=== PATIENT | female | born 1985 | race Caucasian/White ===

== ENCOUNTER 2017-07-04 10:32 | Outpatient (CLI) | payer SELFPAY ==
--- NOTE | 2017-07-04 12:59 | XRAY Report ---
THREE-VIEW RIGHT FOOT: 07/04/2017 CLINICAL INDICATION: Pain. FINDINGS: AP, lateral, oblique views of the right foot demonstrate no evidence of fracture or disloc ation. No radiopaque foreign body is seen in the soft tissues. IMPRESSION: NORMAL RIGHT FOOT. JOB #: [id number] EXT JOB #:[id number]
== END 2017-07-04 10:33 | disposition home or self-care (01) ==
LOC: DI 10:32
PROVIDERS: ATTEND Nurse Practitioner Gerontology
DX: M79.671 Pain in right foot (principal)

== ENCOUNTER 2018-01-14 12:32 | Outpatient (CLI) | payer MEDICAID | END 2018-01-14 12:33 | disposition critical access hospital (66) | LOC: EMS 12:32 | PROVIDERS: ATTEND Surgery | DX: M25.561 Pain in right knee (principal); W01.0XXA Fall on same level from slipping, tripping and stumbling without subsequent striking against object, initial encounter; Y92.830 Public park as the place of occurrence of the external cause | CPT/HCPCS: A0425; A0427 ==

== ENCOUNTER 2018-01-14 12:45 | Emergency (ER) | payer MEDICAID ==
[2018-01-14] MEDS ORDERED: HYDROmorphone 1 MG/ML CARPUJECT IVP STA (13:48)
[2018-01-14] MEDS ORDERED: KETOROLAC 60 MG/2 ML VIAL IVP STA (13:53)
--- NOTE | 2018-01-14 14:34 | XRAY Preliminary Report ---
Exam: XR KNEE 4 VIEW RT IMPRESSION: Normal knee radiography. [facility] SITE ID: [id number]
[2018-01-14 14:35] VITALS: BP 134/77
--- NOTE | 2018-01-14 14:35 | XRAY Report ---
EXAM: RIGHT KNEE RADIOGRAPHY EXAM DATE: 01/14/2018 02:14 PM. CLINICAL HISTORY: Fall, R knee pain. COMPARISON: None. TECHNIQUE: 4 views. FINDINGS: Bones: Normal. No fractures or bone lesions. Joints: Normal. No effusion. No subluxations. Soft Tissues: Normal. No soft tissue swelling. IMPRESSION: Normal knee radiography. [facility] Referring Provider Line: [phone] SITE ID: [id number]
[2018-01-14] MEDS ORDERED: oxyCOD/ACETAMIN 5 MG/325 MG TABLET PO STA (14:37)
--- NOTE | 2018-01-14 14:43 | ED Physician Documentation ---
History of Present Illness - Stated complaint Stated Complaint: GLF - Chief complaint Chief Complaint: General - History obtained from History obtained from: Patient, Family, EMS - History of Present Illness Timing: How many hours ago (1) Pain level max: 10 Pain level now: 9 - Additonal information Additional information: Patient is a 32-year-old female who was out walking in the [place] today, tripped over a tree root and felt a ripping tearing sensation on the lateral aspect of the right knee. EMS arrived and was given 100 mcg of fentanyl. Pain improved. She was also placed in a splint. No deformity noted. Neurovascularly intact at that time. Pain is better with fentanyl and rest. Worse with movement. 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: Yes Substance Use and Type: Marijuana - Immunizations Immunizations are current?: Yes - POLST Patient has POLST: No PD ED PE NORMAL - Vitals Vital signs reviewed: Yes - General General: Alert and oriented X 3, No acute distress - HEENT HEENT: Moist mucous membranes - Neck Neck: Supple, no meningeal sign - Cardiac Cardiac: RRR, Strong equal pulses - Respiratory Respiratory: No respiratory distress, Clear bilaterally - Abdomen Abdomen: Soft, Non tender, Non distended - Derm Derm: Warm and dry - Extremities Extremities: Other (Mild swelling about the right knee. Difficult ligamentous exam secondary to pain. No gross deformity. Neurovascularly intact.) - Neuro Neuro: Alert and oriented X 3 - Psych Psych: Normal mood, Normal affect Results - Vitals Vitals: Vital Signs - 24 hr 01/14/18 01/14/18 12:49 14:34 Temperature 36.2 C L 36.7 C Heart Rate 62 80 Respiratory 18 17 Rate Blood Pressure 135/71 H 134/77 H O2 Saturation 100 98 Oxygen O2 Source Room air - Rads (name of study) Right knee x-ray Radiology: Prelim report reviewed, EMP read contemporaneously, See rad report ( Normal) PD MEDICAL DECISION MAKING - ED course Complexity details: reviewed results, re-evaluated patient, considered differential, d/w patient, d/w family ED course: Patient is a 32-year-old female presents to the emergency department with right knee pain. This occurred after a traumatic event. Likely knee sprain, but may have ligamentous tears around her knee, difficult exam secondary to pain. No acute findings on x-ray. Placed in an articulating knee brace and will have her follow-up with her doctor for repeat evaluation once the swelling has decreased. Departure - Departure Disposition: 01 Home, Self Care Clinical Impression: Right knee sprain Qualifiers: Encounter type: initial encounter Involved ligament of knee: unspecified ligament Qualified Code(s): S83.91XA - Sprain of unspecified site of right knee , initial encounter Condition: Good Instructions: ED Sprain Knee Follow-Up: [facility] [Provider Group] your,doctor in 1 week [Other] Prescriptions: Oxycodone HCl/Acetaminophen [Percocet 5-325 mg Tablet] 1 - 2 each PO Q6H PRN # 20 tablet PRN Reason: pain Comments: You may bear weight as tolerated. Wear the brace to help support the knee. It is important that you follow-up with your doctor in approximately 1 week for repeat evaluation of the knee as we cannot fully test your ligaments secondary to your pain today. It is possible that this is a sprain or something more serious such as ligamentous tears. I have also given you the number for orthopedics if you are unable to see your doctor. Do not drink alcohol or drive while on narcotic pain medicine. Note that many narcotic pain relievers also contain tylenol/acetaminophen. Please ensure that your total dose of acetaminophen from all sources does not exceed 3 grams (3000mg) per day. You may constipated on this medication, take a stool softener such as "Colace" twice a day while you are on it. Also recommend a iojc-giq-lbxquxa laxative such as senna or MiraLAX any day that you do not have a bowel movement. If you received narcotic pain medication in the emergency department, do not drive or operate machinery for the next 24 hours.
== END 2018-01-14 15:33 | disposition home or self-care (01) ==
LOC: EDUNIT# → ED 12:45
DX: S83.91XA Sprain of unspecified site of right knee, initial encounter (principal); W01.0XXA Fall on same level from slipping, tripping and stumbling without subsequent striking against object, initial encounter; Y93.01 Activity, walking, marching and hiking; Y92.821 Forest as the place of occurrence of the external cause; I10 Essential (primary) hypertension
CPT/HCPCS: 73564; 96374; 96375; 99283; 99284; J1170

== ENCOUNTER 2018-01-23 16:04 | Emergency (ER) | payer MEDICAID ==
--- NOTE | 2018-01-23 16:53 | ED Physician Documentation ---
PD HPI LOWER EXT INJURY - Stated complaint Stated Complaint: RT FT PX/SWELLING - Chief complaint Chief Complaint: Ext Problem - History obtained from History obtained from: Patient - History of Present Illness PD HPI LOW EXT INJURY LOCATION: Right, Knee, Lower leg Type of injury: Fall, Twist (10 days ago) Worsened by: Moving, Palpating (calf area) Associated symptoms: Swelling. No: Weakness, Numbness Contributing factors: No: Anticoagulated, Prior ortho surgery Similar symptoms before: Has not had sx before Recently seen: Clinic (couple days ago with Ortho and concern for ACL injury and to get MRI.), Emergency Dept (Seen in the emergency department 10 days ago with diagnosis of a knee sprain he was given a knee immobilizer and crutches. She followed up with orthopedics. Days ago and there is concern for ACL injury and she is to get an MRI. She is noticed since then she has developed increased swelling and pain in the lower leg not just the knee. 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 - Present Medications Home Medications: Ambulatory Orders Medication Instructions Recorded Confirmed Ibuprofen 400 mg PO DAILY 12/26/15 12/26/15 Fluticasone [Flonase] 1 sprays ABRAM DAILY 01/14/18 01/14/18 Hydrocodone/Acetaminophen 1 - 2 each PO Q6H PRN #14 tablet 01/14/18 [Hydrocodon-Acetaminophen 5-325] HYDROcod/ACETAM 5/325 [Lutz 5/325] 1 tab PO Q6H PRN #20 tablet 01/23/18 Rivaroxaban [Xarelto] 15 mg PO BID #42 tablet 01/23/18 - Allergies Allergies/Adverse Reactions: Allergies Allergy/AdvReac Type Severity Reaction Status Date / Time No Known Drug Allergies Allergy Verified 01/23/18 16:11 - Social History Does the pt smoke?: No Smoking Status: Never smoker Does the pt drink ETOH?: Yes Does the pt have substance abuse?: Yes - Family History Family history: reports: Non contributory. denies: Venous thromboembolism - Immunizations Immunizations are current?: Yes - POLST Patient has POLST: No PD ED PE NORMAL - Vitals Vital signs reviewed: Yes - General General: Alert and oriented X 3, No acute distress, Well developed/nourished - Neck Neck: Supple, no meningeal sign, No adenopathy - Cardiac Cardiac: RRR, No murmur - Respiratory Respiratory: No respiratory distress, Clear bilaterally - Derm Derm: Normal color, Warm and dry - Extremities Extremities: Other (right leg with mild effusion at knee. Bruising noted behind knee and at upper calf. Tenderness with swelling in the posterior lower leg most of the length of the calf, and some edema in ankle. No bruising down lower. Has DP pulse, cap refill and color in foot. ) - Neuro Neuro: Alert and oriented X 3, No motor deficit, No sensory deficit, Normal speech Results - Vitals Vitals: Vital Signs - 24 hr 01/23/18 01/23/18 16:06 18:53 Temperature 37 C Heart Rate 107 H 71 Respiratory 16 16 Rate Blood Pressure 167/93 H 146/95 H O2 Saturation 98 98 Oxygen O2 Source Room air - Rads (name of study) duplex U/S right leg Radiology: Prelim report reviewed, Discussed with rads (Nonocclusive clot in popliteal and DVT in lower veins. ) PD MEDICAL DECISION MAKING - ED course Complexity details: reviewed results (below knee DVTs, but will still be in knee immobilizer and has knee injury so risk factors still present and likely would have propagation of the clot to above knee, so I think it is prudent to treat it. ), considered differential, d/w patient Departure - Departure Disposition: 01 Home, Self Care Clinical Impression: Acute deep vein thrombosis (DVT) of right lower extremity Qualifiers: Affected thrombotic vein of extremity: unspecified lower extremity distal vein Qualified Code(s): I82.4Z1 - Acute embolism and thrombosis of unspecified deep veins of right distal lower extremity Condition: Stable Record reviewed to determine appropriate education?: Yes Instructions: ED DVT Prescriptions: HYDROcod/ACETAM 5/325 [Lutz 5/325] 1 tab PO Q6H PRN #20 tablet PRN Reason: Pain Rivaroxaban [Xarelto] 15 mg PO BID #42 tablet Comments: Continue with the knee brace and crutches with partial or no weightbearing as needed for comfort of the pain. Start Xarelto 15 mg twice daily for 3 weeks for the blood clot. After that the dose gets changed to 20 mg daily and he will need to follow-up with your primary care or orthopedics in the next week or so to follow this along. Tylenol if needed for pains. Add hydrocodone if needed for worse pain. Follow-up with orthopedics regarding the knee injury as planned. Discharge Date/Time: 01/23/18 18:52
[2018-01-23] MEDS ORDERED: HYDROcod/ACETAM 5/325 MG TABLET PO STA (17:09)
[2018-01-23] MEDS ORDERED: RIVAROXABAN 15 MG TABLET PO STA (18:31)
--- NOTE | 2018-01-23 19:16 | Ultrasound Report ---
EXAM: RIGHT LOWER EXTREMITY VENOUS ULTRASOUND EXAM DATE: 01/23/2018 06:29 PM. CLINICAL HISTORY: Recent knee injury. Right calf pain since yesterday. COMPARISON: None. TECHNIQUE: Real-time sonographic vascular imaging was performed by the ip litigation associate through the lower extremity utilizing both color-flow and Doppler spectral analysis. Multiple risk control field representative static bimal ges were saved for review. FINDINGS: Common Femoral Vein (CFV): Normal. CFV-GSV Junction: Normal. Profunda Femoral Vein (PFV): Normal. Femoral Vein (FV) Prox: Normal. Femoral Vein (FV) Mid: Normal. Femoral Vein (FV) Dist: Normal. Popliteal Vein: Nonocclusive thrombus. Posterior Tibial Veins: Proximal to mid thrombus. Peroneal Veins: Thrombus. Other: None. IMPRESSION: Nonocclusive DVT in the popliteal vein, with peroneal vein and posterior tibial vein DVT. [facility] The critical result notification system was initiated by Dr. Syed Banda at 19:10 hrs on 01/23/18. The above findings were discussed with Nabeel Sharp by Dr. Syed Banda at 19:14 hrs on 01/23/18. Referring Provider Line: [phone] SITE ID: [id number]
[2018-01-23 19:36] VITALS: BP 146/95
== END 2018-01-23 18:52 | disposition home or self-care (01) ==
LOC: ED 16:04
DX: I10 Essential (primary) hypertension (principal); I82.431 Acute embolism and thrombosis of right popliteal vein; I82.441 Acute embolism and thrombosis of right tibial vein
CPT/HCPCS: 93971; 99283; A9270

== ENCOUNTER 2018-01-27 07:54 | Outpatient (CLI) | payer MEDICAID ==
--- NOTE | 2018-01-28 21:45 | MRI Report ---
EXAM: RIGHT KNEE MRI WITHOUT CONTRAST EXAM DATE: 01/27/2018 08:46 AM. CLINICAL HISTORY: Sprain of anterior cruciate ligament of right knee. Right knee injury while hiking 2 weeks ago. COMPARISON: Right knee radiography from 01/14/2018. TECHNIQUE: Multiplanar, multisequence T1-weighted and fluid-sensitive sequences of the knee without c ontrast. Other: None. FINDINGS: Bones and articular cartilage: Bone contusion, nondisplaced fracture, and focal articular cartilage d elamination injury at the medial aspect of the medial trochlear facet and anteromedial aspect of the medial femoral condyle. Small bone contusion at the anterior lateral aspect of the medial tibial plat eau. Medial Meniscus: The medial meniscus is intact. Lateral Meniscus: The lateral meniscus is intact. Cruciate Ligaments: Tear at the mid to distal aspect of the anterior cruciate ligament which is most likely full-thickness in degree. There is also a high-grade partial tear or full-thickness tear at th e mid aspect of the posterior cruciate ligament. Collateral Ligaments: The medial collateral and lateral collateral ligamentous structures are intact. Tendons: The quadriceps, patellar, semimembranosus, and popliteus tendons are unremarkable. Musculature: Mild edema within the proximal aspect of the soleus muscle and proximal aspect of the ti bialis anterior muscle. Trace amount of edema between the popliteus, soleus, and gastrocnemius muscle s. Other: Small joint effusion. No popliteal cyst. No loose bodies. The medial and lateral retinacula a re intact. Subcutaneous edema at the posterior aspect of the knee. IMPRESSION: 1. Tear at the mid to distal aspect of the anterior cruciate ligament which is most likely full-thick ness in degree. High-grade partial tear or full-thickness tear at the mid aspect of the posterior cru ciate ligament. 2. Bone contusion, nondisplaced fracture, and focal articular cartilage delamination injury at the me dial aspect of the medial trochlear facet and anteromedial aspect of the medial femoral condyle. Smal l bone contusion at the anterolateral aspect of the medial tibial plateau. 3. No meniscal tear. 4. Small joint effusion. [facility] MUSCULOSKELETAL RADIOLOGY SECTION Referring Provider Line: [phone] SITE ID: [id number]
== END 2018-01-27 07:55 | disposition home or self-care (01) ==
LOC: DI 07:54
PROVIDERS: ATTEND Orthopaedic Surgery
DX: S83.511A Sprain of anterior cruciate ligament of right knee, initial encounter (principal); S83.521A Sprain of posterior cruciate ligament of right knee, initial encounter; S80.11XA Contusion of right lower leg, initial encounter

== ENCOUNTER 2018-08-04 15:59 | Outpatient (CLI) | payer MEDICAID ==
--- NOTE | 2018-08-04 17:09 | Ultrasound Report ---
Reason: ACUTE DEEP VENOUS THROMBOSIS OF LEG, RIGHT Procedure Date: 08/04/2018 Accession Number: [id number] / [id number] Procedure: US - Duplex Ext Veins Right CPT Code: FULL RESULT: EXAM: RIGHT LOWER EXTREMITY VENOUS ULTRASOUND EXAM DATE: 08/04/2018 04:41 PM. CLINICAL HISTORY: Follow-up right lower extremity deep venous thrombosis. Patient on Xarelto COMPARISON: DUPLEX EXT VEINS RIGHT 01/23/2018 5:41 PM. TECHNIQUE: Real-time sonographic vascular imaging was performed by the channel executive through the lower extremity utilizing both color-flow and Doppler spectral analysis. Multiple sales utility representative static images were saved for review. FINDINGS: Common Femoral Vein (CFV): Normal. CFV-GSV Junction: Normal. Profunda Femoral Vein (PFV): Normal. Femoral Vein (FV) Prox: Normal. Femoral Vein (FV) Mid: Normal. Femoral Vein (FV) Dist: Normal. Popliteal Vein: Normal. Posterior Tibial Veins: Normal. Peroneal Veins: Normal. Other: Thrombus previously demonstrated in the popliteal vein and calf has resolved. IMPRESSION: No evidence for deep venous thrombosis. [facility]
== END 2018-08-04 16:00 | disposition home or self-care (01) ==
LOC: DI 15:59
PROVIDERS: ATTEND Nurse Practitioner Gerontology
DX: I82.401 Acute embolism and thrombosis of unspecified deep veins of right lower extremity (principal); Z79.01 Long term (current) use of anticoagulants

== ENCOUNTER 2018-08-30 18:54 | Emergency (ER) | payer MEDICAID ==
[2018-08-30 19:09] VITALS: BP 170/97
[2018-08-30] MEDS ORDERED: AMOX/CLAV 875 MG/125 MG TABLET PO STA (19:33)
--- NOTE | 2018-08-30 19:35 | ED Physician Documentation ---
History of Present Illness - Stated complaint Stated Complaint: DOG BITE FINGER - Chief complaint Chief Complaint: General - History obtained from History obtained from: Patient - History of Present Illness Timing: How many hours ago (11) Pain level max: 2 Pain level now: 1 - Additonal information Additional information: r index finger dog bite this am at work. States swelling and redness tonight. Td UTD. She is right handed. Nothing makes it better. worse with movement. 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 - Present Medications Home Medications: Ambulatory Orders Medication Instructions Recorded Confirmed Amox/Clav 875/125 [Augmentin] 1 tab PO Q12H #14 tablet 08/30/18 Cetirizine [ZyrTEC] 1 08/30/18 Lisinopril 1 08/30/18 Norethindrone AC-Eth Estradiol 1 08/30/18 [Femhrt 0.5 mg-2.5 Mcg Tablet] - Allergies Allergies/Adverse Reactions: Allergies Allergy/AdvReac Type Severity Reaction Status Date / Time No Known Drug Allergies Allergy Verified 08/30/18 19:05 - Social History Does the pt smoke?: No Smoking Status: Never smoker Does the pt drink ETOH?: Yes Does the pt have substance abuse?: Yes - Immunizations Immunizations are current?: Yes - POLST Patient has POLST: No PD ED PE NORMAL - Vitals Vital signs reviewed: Yes (O2 sat is 97% on RA.) - General General: Alert and oriented X 3, No acute distress - Derm Derm: Warm and dry - Extremities Extremities: Other (R index finger, superficial bites. mild erythema and swelling NVI.) - Neuro Neuro: Alert and oriented X 3 - Psych Psych: Normal mood, Normal affect Results - Vitals Vitals: Vital Signs - 24 hr 08/30/18 19:03 Temperature 36.8 C Heart Rate 115 H Respiratory 20 Rate Blood Pressure 170/97 H O2 Saturation 9 L Oxygen O2 Source Room air PD MEDICAL DECISION MAKING - ED course Complexity details: considered differential, d/w patient ED course: Right index finger dog bite. Will place on Augmentin and follow-up closely with her doctor. She is right-handed. Tetanus is up-to-date. Warnings of infection and instructions on wound care given at bedside. Also counseled on how to minimize scarring. Patient counseled regarding signs and symptoms for which I believe and urgent re-evaluation would be necessary. Patient with good understanding of and agreement to plan and is comfortable going home at this time This document was made in part using voice recognition software. While efforts are made to proofread this document, sound alike and grammatical errors may occur. Departure - Departure Disposition: 01 Home, Self Care Clinical Impression: Dog bite Qualifiers: Encounter type: initial encounter Qualified Code(s): W54.0XXA - Bitten by dog, initial encounter Condition: Good Instructions: ED Bite Animal General Follow-Up: Gloria Craft ARNP [Primary Care Provider] - Within 1 week Prescriptions: Amox/Clav 875/125 [Augmentin] 1 tab PO Q12H #14 tablet Comments: Take all antibiotics until gone. Return if you worsen. Follow-up with your doctor for further care. Discharge Date/Time: 08/30/18 19:53
== END 2018-08-30 19:53 | disposition home or self-care (01) ==
LOC: ED 18:54
DX: S61.250A Open bite of right index finger without damage to nail, initial encounter (principal); W54.0XXA Bitten by dog, initial encounter; Y93.89 Activity, other specified; Y92.89 Other specified places as the place of occurrence of the external cause; Y99.0 Civilian activity done for income or pay
CPT/HCPCS: 99283; A9270

== ENCOUNTER 2018-09-05 06:03 | Day surgery (SDC) | payer MEDICAID ==
[2018-09-05] MEDS ORDERED: ceFAZolin 2 GM/50 ML 2 GM/50 ML BAG IV ONE (06:29)
[2018-09-05] MEDS ORDERED: LACTATED RINGERS 1,000 ML IV ONE (06:34)
[2018-09-05 06:53] LABS: HCG UR QUAL NEGATIVE
--- NOTE | 2018-09-05 06:59 | ANESTHESIA ---
Pre-Anesthesia VS, & Labs - Is Patient ?: No - Lab Results Lab results reviewed: Yes <Mihai Bullock - Last Filed: 09/05/18 06:56> - NPO >8 hours Last Fluid Intake: Water at 0400 - Is Patient ?: No <Kaiden Whitfield - Last Filed: 09/05/18 07:35> - Diagnosis R ACL Sprain (Mihai Bullock) R ACL Sprain (Kaiden Whitfield) - Procedure R arthroscopic ACL repair with hamstring allograft (Mihai Bullock) R arthroscopic ACL repair with hamstring allograft (Kaiden Whitfield) Vital Signs: Temp Pulse Resp BP Pulse Ox 36.4 C L 85 16 122/96 H 98 09/05/18 06:38 09/05/18 06:38 09/05/18 06:38 09/05/18 06:38 09/05/18 06:38 Height 5 ft 7 in Weight (kg) 92.4 kg Body Mass Index 32.3 Home Medications and Allergies <Mihai Bullock - Last Filed: 09/05/18 06:56> <Kaiden Whitfield - Last Filed: 09/05/18 07:35> Home Medications: Ambulatory Orders Amoxicillin/Potassium Clav [Amox Tr-K Clv 875-125 mg Tab] 1 each PO BID 09/04/18 Cetirizine [ZyrTEC] 1 mg PO DAILY 08/30/18 Lisinopril 1 mg PO DAILY 08/30/18 Norethindrone AC-Eth Estradiol [Femhrt 0.5 mg-2.5 Mcg Tablet] 1 mg PO DAILY 08/30/18 Amoxicillin/Potassium Clav [Amox Tr-K Clv 875-125 mg Tab] 1 each PO BID 09/04/18 Allergies/Adverse Reactions: Allergies Allergy/AdvReac Type Severity Reaction Status Date / Time No Known Drug Allergies Allergy Verified 08/30/18 19:05 Anes History & Medical History - Anesthetic History Anesthesia Complications: reports: No previous complications Family history of Anesthesia Complications: Denies Family history of Malignant Hyperthermia: Denies - Medical History Cardiovascular: reports: Hypertension Pulmonary: reports: Other Musculoskeletal: reports: Other Smoking Status: Never smoker - Surgical History Gynecologic: section Orthopedic: Other <Mihai Bullock - Last Filed: 09/05/18 06:56> - Anesthetic History Anesthesia Complications: reports: No previous complications Family history of Anesthesia Complications: Denies Family history of Malignant Hyperthermia: Denies - Medical History Cardiovascular: reports: Hypertension Gastrointestinal: reports: None Urinary: reports: None Neuro: reports: None Endocrine/Autoimmune: reports: None Blood Disorders: reports: None Skin: reports: None Smoking Status: Current every day smoker Psychosocial: reports: No issues indicated <Kaiden Whitfield - Last Filed: 09/05/18 07:35> Exam General: Alert Dental: WNL Mouth Opening: Greater than 4 Fingerbreadths Neck Mobility: Normal Mallampati classification: II Respiratory: Lungs clear Cardiovascular: Regular rate Neurological: Normal speech Mental/Cognitive Status: Alert/Oriented X3 Cognitive Status: Within normal limits <Kaiden Whitfield Last Filed: 09/05/18 07:35> Plan Anesthesia Type: General, Femoral Block (possible femoral or adductor canal nerve block (will discuss with surgeon)) Consent for Procedure(s) Verified and Reviewed: Yes Code Status: Attempt Resuscitation <Mihai Bullock - Last Filed: 09/05/18 06:56> Anesthesia Type: General, Femoral Block Consent for Procedure(s) Verified and Reviewed: Yes Code Status: Attempt Resuscitation ASA classification: 2-Mild systemic disease Is this case an emergency?: No <Kaiden Whitfield Last Filed: 09/05/18 07:35>
[2018-09-05] MEDS ORDERED: ROPIVACAINE 0.5% PF 20 ML AMPULE ONE ×2 (07:12→07:38)
[2018-09-05] MEDS ORDERED: EPINEPHrine 1 MG/ML AMP ONE (07:19)
[2018-09-05] MEDS ORDERED: BUPIVACAINE 0.25% PF 30 ML VIAL ONE (07:19)
[2018-09-05] MEDS ORDERED: DEXAMETHASONE 4 MG/ML VIAL ONE (07:39)
[2018-09-05] MEDS ORDERED: ePHEDrine 50 MG/ML VIAL IVP ONE (08:25)
[2018-09-05] MEDS ORDERED: LIDOCAINE-MPF 2% 5 ML VIAL IM ONE (08:25)
[2018-09-05] MEDS ORDERED: fentaNYL 250 MCG/5 ML VIAL IVP ONE (08:25)
[2018-09-05] MEDS ORDERED: DEXAMETHASONE 4 MG/ML VIAL IVP ONE (08:25)
[2018-09-05] MEDS ORDERED: PROPOFOL 200 MG/20 ML VIAL IVP ONE (08:25)
[2018-09-05] MEDS ORDERED: ONDANSETRON 4 MG/2 ML VIAL IVP ONE (08:25)
[2018-09-05] MEDS ORDERED: KETOROLAC 30 MG/ML VIAL IVP ONE (08:25)
[2018-09-05] MEDS ORDERED: MIDAZOLAM 2 MG/2 ML VIAL IVP ONE (08:25)
[2018-09-05] MEDS ORDERED: ROPIVACAINE 0.5% PF 20 ML AMPULE EP ONE (08:25)
[2018-09-05] MEDS ORDERED: BUPIVACAINE 0.25% PF 30 ML VIAL SUBQ ONE (08:49)
--- NOTE | 2018-09-05 09:58 | IMMEDIATE POSTOPERATIVE NOTE ---
Immediate Postoperative Note - Procedure Note Procedure Date: 09/05/18 Pre-Op Diagnosis: RIGHT ACL SPRAIN Procedure: RIGHT SCOPE ASSISTED ACL RECONSTRUCTION HAMSTRING AUTOGRAFT Post-Op Diagnosis: SAME Primary Surgeon: ANDER Math Interventionist: JAYRO Anesthesia Type: General LMA, Local, Regional block Findings: ABOVE, MINIMAL CHONDROMALCIA Complications: No complications Estimated Blood Loss (in cc): 25 Plan of Care: Patient tolerated procedure well. Instrument and sponge counts correct. Patient transferred to the recovery room in stable condition. Patient will follow standard postoperative right knee ACL protocol. She will be nonweightbearing while the femoral block is working. She may bear weight after the block wears off with a knee brace locked in extension with crutches and assistance as needed. When at rest she is instructed to remove the brace and work on range of motion flexion extension as tolerated as preoperative. She will follow-up in 10-14 days or sooner on an as-needed basis. Patient will be on aspirin for DVT prophylaxis perioperative antibiotics and analgesic medication.
[2018-09-05] MEDS ORDERED: oxyCODONE 5 MG TABLET PO PRN (09:59)
[2018-09-05] MEDS ORDERED: ONDANSETRON 4 MG/2 ML VIAL IVP PRN (09:59)
[2018-09-05] MEDS: HYDROmorphone 1 MG/ML CARPUJECT ONE ×2 (10:22→10:28)
[2018-09-05] MEDS ORDERED: oxyCODONE 5 MG TABLET ONE (10:58)
[2018-09-05 11:25] VITALS: BP 108/75
--- NOTE | 2018-09-05 12:59 | OPERATIVE REPORT ---
DATE OF SERVICE: 09/05/2018 Physician: Oscar Morgan MD SURGEON: Oscar Morgan MD ANESTHESIA PROVIDER: Luis Whitfield CRNA. ANESTHESIA TYPE: Right side regional femoral block under ultrasound guidance as well as general anesthesia/laryngeal mask airway as well as 30 mL of 0.25 plain Marcaine periarticular. INTRAOPERATIVE COMPLICATIONS: None noted. COMPRESSION DEVICE: Contralateral left calf SCD boots. PREOPERATIVE ANTIBIOTICS: Weight-based IV Ancef. ORTHOPEDIC IMPLANTS 1. Arthrex ACL TightRope device. 2. Four #2 FiberWire Arthrex sutures. 3. A 10 x 30 BioComposite interference screw, Arthrex. HISTORY OF PRESENT ILLNESS AND INDICATIONS: Patient is a 33-year-old female with symptomatic instability, right knee. She had a long preoperative course to regain her range of motion. She is indicated for operative treatment. Please see previous clinic discussions for risks, benefits, alternatives. These were again highlighted with the patient and the patient's in the preoperative care unit. Her questions are answered. She verbalizes understanding of the above and verbalizes wish to proceed with operative treatment. Informed consent is given. INTRAOPERATIVE FINDINGS: The patient is noted to have full range of motion passively under anesthesia, but with unstable ACL exam with positive anterior drawer, Estrella, and pivot shift testing. Post procedure, all of this is negative with full range of motion, but a negative anterior drawer, negative Estrella, negative pivot shift test. Intraarticularly, suprapatellar pouch is clear. Minimal chondromalacia grade 1-2 posterior aspect of the patella. A small area of chondromalacia grade 2 of the medial femoral condyle. No significant meniscus tear identified. Minimal chondromalacia otherwise grade I medial and lateral compartments. Medial and lateral gutters clear. No loose bodies appreciated. Post femoral fixation of the ACL graft, there is good lateral and anterior- superior clearance and isometry is excellent with minimal movement 1-2 mm at the terminal degrees of extension. PROCEDURE: On 09/05/2018, the patient identifies her right knee as the operative site. This is signed by the operating surgeon. Patient is brought to the operating room. General anesthesia is administered after femoral block had been administered in the preoperative area and antibiotics are given IV. The patient is placed supine on the operating table. Head, neck, and extremity are placed in anatomically comfortable and safe positions to avoid peripheral nerve stretch and compression. The patient's right lower extremity has a well-padded tourniquet placed high on the right thigh, taking care to avoid encompassing genitalia. The patient's right knee and right lower extremity are pre-scrubbed with chlorhexidine solution and then prepped and draped in the usual sterile fashion. At this time, surgical pause identifies the right knee as the operative site. At this point, Esmarch bandage is used to exsanguinate the limb. Tourniquet is inflated to 250, with a total of 88 minutes for the duration of the case. At this point, a linear incision made over the pes insertion through skin and spreading dissection carried out to the sartorial fascia, which is elevated in an L-shaped fashion and then gracilis and semitendinosus tendons are isolated with fascial bands cut and they are removed with a tendon stripper to maximal length. These are brought to the back table and prepared, putting #2 FiberWire whipstitch in each end after removing muscular and fatty tissue. These are set aside in a moist Ray-Namrata after being draped over an ACL TightRope device. At this point, local anesthetic is infused anteromedially, anterolaterally, superomedially, and then diagnostic arthroscopy was carried out. A small incision is made laterally. Scope is introduced into the notch and then into the suprapatellar pouch. Fluids are infused, outflow portal is created. A diagnostic arthroscopy is carried out. Please see operative findings. At this time, after confirmation with no indication for meniscal or chondral work, the notchplasty is performed debriding the all but completely torn ACL, which is scarred to the PCL. This is debrided to the [id number] position. A danish is used to achieve appropriate notchplasty. At this point, ACL tibial guide at 57 degrees is brought such that the tibial tunnel would exit at the appropriate ACL footprint, approximately the level with the anterior aspect of the lateral meniscus and appropriately anterior to the PCL. This is drilled at a size 8. External chamfer is used. The internal area is debrided using a shaver and then the [id number] guide was brought to the 10:30 position. A spade-tipped guidewire is brought to the second cortex and out through the skin and then the femoral socket with a 1 mm back wall is reamed to a depth of 25 mm. Bony debris is evacuated. At this point, the ACL TightRope device and graft are brought into the knee. The ACL TightRope is allowed to toggle on the second cortex. It is pulled taut to ensure that it is well fixed there, and then the ACL is toggled into place such that it seated to a depth of 25 mm. At this point, isometry is tested, please see the operative findings. At this point, the knee is flexed to approximately 20-25 degrees. Posterior drawer is administered. Graft limbs are all pulled taut and then all guidewires brought between these and then a 10 x 30 BioComposite interference screw is twisted into place with excellent compression fixation. At this point, ACL examined and is negative. Ultimately, after reexamining the intraarticular area, graft limbs are cut. The ACL TightRope is tied using arthroscopic knot pusher with the white sutures after the blue sutures are removed and then the white sutures are cut below the level of skin. At this point, the sartorial fascia is closed over to its near anatomic position after copious irrigation of the tibial incision. Tibial incision is closed with 0 Vicryl, 2-0 Vicryl, and then subcuticular Prolene and Steri-Strips. Other incisions are closed using interrupted nylon suture after copious irrigation of the joint and evacuation. Local anesthetic is infused in the periarticular area in the hamstring region. Skin is washed and dried. Xeroform dressing is applied in all wounds. Dry sterile dressing applied. Soft roll is applied, and then an Geronimo wrap is applied. The patient is placed in a hinged knee brace locked in extension. The patient tolerated the procedure well. Instrument and sponge counts are correct. The patient is transferred to recovery room in stable condition. She will follow standard postoperative ACL protocol. The patient will be nonweightbearing while the femoral block is working; then once she has complete sensation of the right lower extremity, she would be permitted to bear weight with the knee brace locked in extension with assistance and assist device as necessary. When at rest, starting today, she will remove the brace and work on range of motion as she had done preoperatively. The patient will be on perioperative antibiotics and analgesic medications as well as aspirin for DVT prophylaxis. The patient and the patient's are advised on that. It is also written in the instructions. The patient denies any contraindication to medications. PLAN: She will follow up in 10-14 days or sooner on an as-needed basis, in which case she would notify our office if there are problems, questions or worsening of her condition. The patient's is contacted in the waiting room, and case is discussed. His questions are answered. Arthroscopic portals are reviewed. He verbalizes understanding and satisfaction with the plan as outlined. TD: 09/05/2018 10:38 OMEGA
== END 2018-09-05 06:04 | disposition home or self-care (01) ==
LOC: SDS 06:03
PROVIDERS: ATTEND Orthopaedic Surgery Sports Medicine
PROC: 0LBQ0ZZ Excision of Right Knee Tendon, Open Approach (ICD-10-PCS; 2018-09-05)
PROC: 0MRN47Z Replacement of Right Knee Bursa and Ligament with Autologous Tissue Substitute, Percutaneous Endoscopic Approach (ICD-10-PCS; principal; 2018-09-05 07:30)
DX: S83.511D Sprain of anterior cruciate ligament of right knee, subsequent encounter (principal); I10 Essential (primary) hypertension; F17.200 Nicotine dependence, unspecified, uncomplicated; Z86.718 Personal history of other venous thrombosis and embolism; Z79.51 Long term (current) use of inhaled steroids
CPT/HCPCS: 29888; 81025; A9270; C1713; J0690; J1170; J3010; J7120

== ENCOUNTER 2020-05-12 17:39 | Emergency (ER) | payer MEDICAID, OTHER ==
[2020-05-12 17:47] VITALS: BP 145/99
--- NOTE | 2020-05-12 18:07 | ED Physician Documentation ---
PD HPI LOWER EXT INJURY - Stated complaint Stated Complaint: LT ANKLE INJ - Chief complaint Chief Complaint: Ext Problem - History obtained from History obtained from: Patient - History of Present Illness PD HPI LOW EXT INJURY LOCATION: Left, Ankle Type of injury: Twist (inversion) Where injury occurred: Work Timing - onset: Today Timing - duration: Hours (1) Timing - details: Abrupt onset, Still present Worsened by: Moving, Other (walking) Associated symptoms: Swelling. 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 - Present Medications Home Medications: Ambulatory Orders Medication Instructions Recorded Confirmed Cetirizine [ZyrTEC] 1 mg PO DAILY 08/30/18 09/04/18 Norethindrone AC-Eth Estradiol 1 mg PO DAILY 08/30/18 09/04/18 [Femhrt 0.5 mg-2.5 Mcg Tablet] lisinopriL [Lisinopril] 1 mg PO DAILY 08/30/18 09/04/18 Amoxicillin/Potassium Clav [Amox 1 each PO BID 09/04/18 09/04/18 Tr-K Clv 875-125 mg Tab] - Allergies Allergies/Adverse Reactions: Allergies Allergy/AdvReac Type Severity Reaction Status Date / Time No Known Drug Allergies Allergy Verified 05/12/20 17:45 - Social History Does the pt smoke?: No Smoking Status: Current every day smoker Does the pt drink ETOH?: Yes Does the pt have substance abuse?: Yes - Immunizations Immunizations are current?: Yes - POLST Patient has POLST: No PD ED PE NORMAL - Vitals Vital signs reviewed: Yes - General General: Alert and oriented X 3, No acute distress, Well developed/nourished - Derm Derm: Normal color, Warm and dry - Extremities Extremities: Other (left ankle with tenderness over ATFL without noted laxity on stress test. Pain with inversion. ) - Neuro Neuro: No motor deficit, No sensory deficit Results - Vitals Vitals: Vital Signs - 24 hr 05/12/20 17:45 Temperature 36.6 C Heart Rate 100 Respiratory 16 Rate Blood Pressure 145/99 H O2 Saturation 97 Oxygen O2 Source Room air - Rads (name of study) left ankle xray Radiology: Prelim report reviewed (no fractures), See rad report PD MEDICAL DECISION MAKING - ED course Complexity details: reviewed results (no fractures. She says she has crutches at home if needed. Ankle aircast by Tech here. ), considered differential, d/w patient Departure - Departure Disposition: Home, Self Care Clinical Impression: Ankle sprain Qualifiers: Encounter type: initial encounter Involved ligament of ankle: anterior talofibular ligament Laterality: left Qualified Code(s): S93.492A - Sprain of other ligament of left ankle, initial encounter Condition: Stable Record reviewed to determine appropriate education?: Yes Instructions: ED Sprain Ankle Comments: Your x-ray is normal without any signs of fracture. Presume a decent ankle sprain. Use the ankle brace when up and around and presume minimal walking and activity for the first 2 to 3 days to reduce swelling and help with the initial pain. Then progress with more weightbearing and activity as able. I would anticipate improvement over than for several days and then mostly better over a week or so. Recheck if not improving well in that timeframe. Ibuprofen or naproxen 2-3 times a day. Add Tylenol if needed. Continue the ankle brace when ambulating or active for at least 1 to 2 weeks though to provide support while healing. Forms: Activity restrictions Discharge Date/Time: 05/12/20 18:58
[2020-05-12] MEDS ORDERED: ACETAMINOPHEN 325 MG TABLET PO STA (18:31)
[2020-05-12] MEDS ORDERED: IBUPROFEN 600 MG TABLET PO STA (18:31)
--- NOTE | 2020-05-12 18:46 | XRAY Report ---
PROCEDURE: Ankle 3 View LT INDICATIONS: Trauma TECHNIQUE: 3 views of the ankle were acquired. COMPARISON: None FINDINGS: Bones: No fractures or dislocations. Ankle mortise is normally aligned. No suspicious bony lesions . Soft tissues: There is mild lateral malleolar soft tissue swelling. No tibiotalar joint effusion. A chilles tendon appears normal. IMPRESSION: Lateral malleolar soft tissue swelling without underlying bony abnormality. If pain pers ists, consider repeat imaging in 5-7 days. Reviewed by: Genet Ivy MD on 05/12/2020 6:45 PM PDT Approved by: Genet Ivy MD on 05/12/2020 6:45 PM PDT Station ID: [id number]
== END 2020-05-12 18:58 | disposition home or self-care (01) ==
LOC: ED 17:39
DX: S93.492A Sprain of other ligament of left ankle, initial encounter (principal); X50.1XXA Overexertion from prolonged static or awkward postures, initial encounter; Y99.0 Civilian activity done for income or pay; I10 Essential (primary) hypertension
CPT/HCPCS: 73610; 99282; 99283; A9270

== ENCOUNTER 2023-08-02 10:54 | Outpatient (CLI) | payer OTHER ==
--- NOTE | 2023-08-02 11:42 | XRAY Report ---
PROCEDURE: Wrist 3 View RT INDICATIONS: WRIST PAIN,RIGHT TECHNIQUE: 3 views of the wrist were acquired. COMPARISON: None. FINDINGS: Bones: No fractures or dislocations. No suspicious bony lesions. No significant degenerative changes are present. Soft tissues: No suspicious soft tissue calcifications or masses. IMPRESSION: No acute bony abnormality. Reviewed by: Kaiden Linda MD on 08/02/2023 11:41 AM [facility] Approved by: Kaiden Linda MD on 08/02/2023 11:41 AM [facility] Station ID: [id number]
== END 2023-08-02 10:55 | disposition home or self-care (01) ==
LOC: DI 10:54
PROVIDERS: ATTEND Physician Assistant Medical
DX: M25.531 Pain in right wrist (principal)

== ENCOUNTER 2024-02-22 08:25 | Outpatient (CLI) | payer BC ==
[2024-02-22 12:06] LABS: BASOPHILS # (AUTO) 0.1 10^3/uL (0.0-0.1); EOSINOPHILS # (AUTO) 0.2 10^3/uL (0.0-0.7); EOSINOPHILS % (AUTO) 2.9 %; HGB - HEMOGLOBIN 13.3 g/dL (12.0-16.0); LYMPHOCYTES # (AUTO) 2.6 10^3/uL (1.5-3.5); LYMPHOCYTES % (AUTO) 35.7 %; MEAN CORPUSCULAR HEMOGLOBIN 28.9 pg (27.0-31.0); MEAN CORPUSCULAR HGB CONC 30.9 g/dL (32.0-36.0); MEAN CORPUSCULAR VOLUME 93.3 fL (81.0-99.0); MEAN PLATELET VOLUME 10.5 fL (7.9-10.8); MONOCYTES # (AUTO) 0.7 10^3/uL (0.0-1.0); MONOCYTES % (AUTO) 9.7 %; NEUTROPHILS # (AUTO) 3.6 10^3/uL (1.5-6.6); NEUTROPHILS % (AUTO) 50.6 %; PLT - PLATELET COUNT 285 10^3/uL (130-450); RED BLOOD COUNT 4.61 10^6/uL (4.20-5.40); RED CELL DISTRIBUTION WIDTH 14.6 % (12.0-15.0); WHITE BLOOD COUNT 7.2 x10^3/uL (4.8-10.8)
[2024-02-22 12:57] LABS: ALBUMIN 4.2 g/dL (3.2-5.5); ALBUMIN/GLOBULIN RATIO 1.4 (1.0-2.2); ALKALINE PHOSPHATASE 21 IU/L (42-121); ALT ALANINE AMINOTRANSFERASE 21 IU/L (10-60); AST ASPARTATE AMINOTRANSFERASE 15 IU/L (10-42); BILIRUBIN,TOTAL 0.4 mg/dL (0.2-1.0); BUN - BLOOD UREA NITROGEN 12 mg/dL (6-20); CALCIUM 9.2 mg/dL (8.5-10.3); CARBON DIOXIDE - CO2 28 mmol/L (21-32); CHLORIDE 104 mmol/L (101-111); CHOL/HDL RATIO 3.2 (<4.4); CHOLESTEROL 190 mg/dL; CREATININE 0.7 mg/dL (0.6-1.3); GFR - MDRD 93 (>89); GLUCOSE 103 mg/dL (74-104); HDL CHOLESTEROL 59 mg/dL; LDL CHOLESTEROL,CALCULATED 102 mg/dL; LDL/HDL RATIO 1.7 (<4.4); POTASSIUM 4.1 mmol/L (3.5-4.5); SODIUM 138 mmol/L (135-145); TOTAL PROTEIN 7.2 g/dL (6.4-8.9); TRIGLYCERIDES 144 mg/dL (48-352); VLDL CHOLESTEROL 29 mg/dL
[2024-02-22 13:04] LABS: THYROID STIMULATING HORMONE 0.62 uIU/mL (0.34-5.60)
[2024-02-22 13:32] LABS: ESTIMATED AVERAGE GLUCOSE 105 mg/dL (70-100); HEMOGLOBIN A1c% 5.3 % (4.27-6.07)
== END 2024-02-22 08:26 | disposition home or self-care (01) ==
LOC: LAB.N 08:25
PROVIDERS: ATTEND Physician Assistant
DX: Z13.9 Encounter for screening, unspecified (principal); E66.9 Obesity, unspecified
CPT/HCPCS: 36415; 80053; 80061; 83036; 83721; 84443; 85025

== ENCOUNTER 2024-05-13 20:41 | Emergency (ER) | payer BC ==
--- NOTE | 2024-05-13 21:16 | ED Physician Documentation ---
History of Present Illness - Stated complaint Stated Complaint: LT EYE INJ - Chief complaint Chief Complaint: Heent - History obtained from History obtained from: Patient - Additonal information Additional information: Patient is a 39-year-old female presenting to the emergency department with left eye pain. Patient states around 3 PM her daughter tried to pull at her eyelashes and accidentally poked her eye. She notes severe pain after this. Patient was wearing glasses when this happened. Last tetanus shot was over 10 years ago. Patient reports feelings of foreign body in her left eye. She notes constant lacrimation but no vision changes or blurry vision or photophobia. Patient notes worsening pain with movement of her eye. She tried some erythromycin cream that she had at home with no significant relief. 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 - Present Medications Home Medications: Ambulatory Orders Medication Instructions Recorded Confirmed Cetirizine [ZyrTEC] 1 mg PO DAILY 08/30/18 09/04/18 lisinopriL [Lisinopril] 1 mg PO DAILY 08/30/18 09/04/18 norethindrone ac-eth estradioL 1 mg PO DAILY 08/30/18 09/04/18 [Femhrt 0.5 mg-2.5 Mcg Tablet] Amoxicillin/Potassium Clav [Amox 1 each PO BID 09/04/18 09/04/18 Tr-K Clv 875-125 mg Tab] Erythromycin Base [Erythromycin 1 appful OP 5XD 7 Days #1 gm 05/13/24 Ophthalmic Ointment] - Allergies Allergies/Adverse Reactions: Allergies Allergy/AdvReac Type Severity Reaction Status Date / Time No Known Drug Allergies Allergy Verified 05/13/24 20:53 - Social History Does the pt smoke?: No Smoking Status: Never smoker Does the pt drink ETOH?: Yes Does the pt have substance abuse?: Yes - Immunizations Immunizations are current?: Yes - POLST Patient has POLST: No Results - Vitals Vitals: Vital Signs - 24 hr 05/13/24 20:47 Temperature 36.6 C Heart Rate 78 Respiratory 18 Rate Blood Pressure 159/113 H O2 Saturation 98 Oxygen O2 Source Room air PD Medical Decision Making - ED course Complexity details: reviewed old records, re-evaluated patient ED course: Patient is a 39-year-old female presenting to the emergency department with left eye pain and pain with movement of her eyes. She notes symptoms have been going on since this afternoon. Patient daughter accidentally scraped her eye. Patient denies any previous injuries to her eye. She wears glasses at baseline. She denies any vision changes only lacrimation with her eye no significant photophobia. She tried erythromycin ointment she had at home for the symptoms with no significant improvement. Vital stable on arrival. Ren lamp examination here in the emergency department shows linear corneal abrasion ac ross left eye. No signs of foreign bodies eversion of upper eyelid shows no acute findings. Patient felt significantly better after proparacaine. Her last tetanus was over 10 years ago will update here in the emergency department. Visual acuity stable here in the emergency department. Patient feeling significantly better prescription sent for erythromycin ointment. Patient has her own ophtha lmologist discussed with her strict follow-up with ophthalmology but if her symptoms of pain and lacrimation persist she should return to the emergency department. She was instructed to watch for any swelling around her eye any loss of vision any fevers or any other new or worsening symptoms she should return to the emergency department. Patient understands and is agreeable with this plan. Departure - Departure Disposition: 01 Home, Self Care Clinical Impression: Injury of conjunctiva and corneal abrasion of left eye w/o FB Condition: Good Prescriptions: Erythromycin Base [Erythromycin Ophthalmic Ointment] 1 appful OP 5XD 7 Days #1 gm Comments: Your workup here in the emergency department showed left eye corneal abrasion. Return with any swelling around her eye any loss of vision any fevers or any other new or worsening symptoms follow-up with your court bailiff in the outpatient patient setting. Use antibiotics as prescribed. Forms: PCP List
[2024-05-13] MEDS: TETANUS/DIPHTHERIA/PERTUSSIS 0.5 ML SYRINGE IM ONE (21:27)
[2024-05-13] MEDS: PROPARACAINE 0.5% OPHTH DROPS 15 ML RIGHTEYE STA (21:28)
[2024-05-13 21:50] VITALS: BP 130/88; O2SAT 100
== END 2024-05-13 21:42 | disposition home or self-care (01) ==
LOC: ED 20:41
DX: S05.02XA Injury of conjunctiva and corneal abrasion without foreign body, left eye, initial encounter (principal); W50.0XXA Accidental hit or strike by another person, initial encounter; Y93.89 Activity, other specified
CPT/HCPCS: 90471; 90715; 99283; J3490